=== PATIENT | male | born 1990 | race Caucasian/White ===

== ENCOUNTER 2021-04-27 08:41 | Outpatient (CLI) | payer OTHER | END 2021-04-27 08:42 | disposition home or self-care (01) | LOC: BICCT 08:41 | PROVIDERS: ATTEND Nurse Practitioner Family | DX: G43.909 Migraine, unspecified, not intractable, without status migrainosus (principal); J32.1 Chronic frontal sinusitis | CPT/HCPCS: 70220; 70450 ==